=== PATIENT | male | born 1960 | race Caucasian/White ===

== ENCOUNTER 2016-11-22 16:03 | Emergency (ER) | payer OTHER ==
[~2016-11-22] VITALS: Ht 167.6 cm; Wt 77.1 kg
[~2016-11-22 16:03] MED LIST: ASPIRIN325 M2 PO; ATORVASTATIN CA40 M1 PO; JANUVIA25 M1 PO; LABETALOL HCL200 M1 PO; LISINOPRIL10 M1 PO; METFORMIN HCL500 M2 PO; NOVOLIN R100 UNIT/1 SC; SERTRALINE HCL25 MG PO
[2016-11-22 16:23] VITALS: BP 128/75
--- NOTE | 2016-11-22 17:20 | ED UPPER/LOWER EXTREMITY COMPL ---
History of Present Illness General Chief Complaint: Laceration Procedure Stated Complaint: LAC TO LEFT FOREARM Source: patient Exam Limitations: no limitations Vital Signs & Intake/Output Vital Signs & Intake/Output Vital Signs Date Time Temp Pulse Resp B/P B/P Pulse O2 O2 Flow FiO2 Mean Ox Delivery Rate 11/22 1710 97 Room Air 11/22 1623 97.1 58 16 128/75 97 Room Air ED Intake and Output 11/23 0000 11/22 1200 Intake Total Output Total Balance Patient 170 lb Weight Weight Estimated Measurement Method Allergies Coded Allergies: No Known Allergies (02/13/16) Triage Note: PT ARRIVES WITH LACERATION TO HIS LEFT FOREARM AFTER CUTTING HIS ARE WITH A PIECE OF WOOD. PT STATES HE FELL DOWN IN HIS DRIVEWAY AND THEN NOTICED HE HAD CUT HIS ARM. PT DENIES HITTTING HIS HEAD -LOC Triage Nurses Notes Reviewed? yes Onset: Just prior to arrival Duration: hour(s): (1) Timing: no prior history Severity: moderate Severity Numbers: 6 Pain/Injury Location: Left: Forearm. Method of Injury: fall, laceration HPI: Patient is a 56-year-old male with history of CVA presenting to the emergency department with chief complaint of laceration to left forearm. Patient reports that he was walking in his yard and tripped and fell and landed on a piece of wood. Denies numbness or tingling. Pain is currently moderate. Worse with palpation. Denies taking anything for symptoms prior to arrival. Patient takes daily aspirin. No other blood thinners. Unsure OF tetanus immunization. No head injury, no loss of consciousness. No dizziness chest pain or palpitations precipitating the fall. Patient reports that he tripped over something on the ground. (TRUE GARCIA) Reconcile Medications Aspirin (Aspirin*) 325 MG TABLET 1 TAB PO DAILY ANTIPLATELET Atorvastatin Calcium 40 MG TABLET 1 TAB PO 1700 STROKE Labetalol HCl 200 MG TABLET 1 TAB PO BID HTN Lisinopril 10 MG TABLET 1 TAB PO DAILY HTN Metformin HCl (Metformin HCl ER) 500 MG TAB.ER.24 1 TAB PO DAILY diabetes Sertraline HCl 25 MG TABLET 1 TAB PO DAILY DEPRESSION (RODRIGO AMAYA,MALA) Past History Travel History Traveled to [place] past 21 day No Medical History Any Pertinent Medical History? see below for history Neurological: CVA EENT: NONE Cardiovascular: hypertension (untreated) Respiratory: NONE Gastrointestinal: NONE Hepatic: NONE Renal: NONE Musculoskeletal: NONE Psychiatric: alcohol dependence Endocrine: NONE Blood Disorders: NONE Cancer(s): NONE APPLICATION PROCESSOR/Reproductive: NONE History of MRSA: No History of VRE: No History of CDIFF: No Surgical History Surgical History: RIGHT SHOULDER SURGERY Psychosocial History Who do you live with Son Services at Home None What is your primary language Icelandic Tobacco Use: Quit >30 days ago ETOH Use: denies use Illicit Drug Use: denies illicit drug use Family History Family History, If Any: MOTHER FH: congestive heart failure FATHER FHx: lung cancer Hx Contributory? No (TRUE GARCIA) Review of Systems Review of Systems Constitutional: Reports: no symptoms. Comments Review of systems: See HPI, All other systems negative. Constitutional, no chills fever or weight loss HEENT: No visual changes no sore throat no congestion Cardiovascular: No chest pain ,palpitation Skin, no jaundice Respiratory: No dyspnea cough sputum GI: No nausea no vomiting : No dysuria No hematuria Muscle skeletal: no back pain, no neck pain, Neurologic: No numbness no confusion NO BECK Psych: No stress anxiety or depression,. Heme/endocrine: No bruising no bleeding no polyuria or polydipsia Immunology: No splenectomy or history of AIDS (TRUE GARCIA) Physical Exam Physical Exam General Appearance: well developed/nourished, no apparent distress, alert, awake , comfortable Comments: Well-developed well-nourished no apparent distress. HEENT: Atraumatic, extraocular motion intact Neck: Normal inspection Back: Nontender Respiratory: No respiratory distress Extremities: No edema, full range of motion, full range of motion of the left forearm, left wrist and left hand without difficulty or pain. Radial pulses are 2+ bilaterally. Capillary refills intact in upper extremity bilaterally. Skin: Flap-like subcutaneous laceration, well approximating approximately 4-5 cm in length noted on the volar aspect of the left forearm. All foreign bodies appreciated after extensive irrigation. No surrounding erythema or edema. There is a superficial abrasion approximately 2-3 cm noted distally from this laceration. The laceration is in the mid aspect of the left forearm. Neuro: Alert and oriented x3, motor and sensory intact IN UPPER EXT BILATERALLY. Psych: Mood affect normal, normal memory normal judgment. (TRUE GARCIA) Progress Differential Diagnosis: LACERATION, ABRASION, CONTUSION, NEED FOR TETANUS PROPHYLAXIS Plan of Care: Current Medications Sig/Brad Start time Last Medication Dose Stop Time Status Admin Tetanus/Diphtheria 0.5 ML ONCE ONE 11/22 1729 UNVr Toxoids Adsorbed 11/22 1730 (Decavac) Comments: Declines pain medication on arrival. Patient given IM tetanus immunization. (TRUE GARCIA) Departure Departure Time of Disposition: 1720 Disposition: HOME OR SELF CARE Condition: Stable Clinical Impression Primary Impression: Laceration Referrals: RISSA AMAYA,KELVIN Arceo (PCP/Family) Additional Instructions: RETURN IN 7-10 DAYS FOR SUTURE REMOVAL. KEEP CLEAN AND DRY. TAKE MOTRIN OR TYLENOL OVER THE COUNTER DIRECTED. RETURN FOR INCREASED REDNESS, FEVERS OR CONCERNS Departure Forms: Customer Survey General Discharge Information (TRUE GARCIA) PA/FLIGHT ATTENDANT/INFLIGHT SUPERVISOR Co-Sign Statement Statement: ED Attending supervision documentation- [] I saw and evaluated the patient. I have also reviewed all the pertinent lab results and diagnostic results. I agree with the findings and the plan of care as documented in the PA's/FLIGHT ATTENDANT/INFLIGHT SUPERVISOR's documentation. [X] I have reviewed the ED Record and agree with the PA's/FLIGHT ATTENDANT/INFLIGHT SUPERVISOR's documentation. [] Additions or exceptions (if any) to the PAs/FLIGHT ATTENDANT/INFLIGHT SUPERVISOR's note and plan are summarized below: [] (RODRIGO AMAYA,MALA) Procedures Laceration/Wound Repair Laceration/Wound Repair: Wound Location: upper extremity Wound's Depth, Shape: flap, subcutaneous Wound Length (cm): 5 Wound Explored: clean, no foreign body removed, irrigated extensively Irrigated w/ Saline (ccs): 500 Betadine Prep? Yes Anesthesia: 1% lidocaine Volume Anesthetic (ccs): 6 Wound Debrided: minimal Wound Repaired With: sutures Suture Size/Type: 5:0, nylon Number of Sutures: 12 Layer Closure? No Date of Last Tetanus: 11/22/16 Tetanus Status: up to date Progress: Patient tolerated procedure well. Area was prepped with Betadine, anesthetized with 1% lidocaine. Sterile dressing placed with Betadine. (TRUE GARCIA)
== END 2016-11-22 17:59 ==
LOC: ERH 16:03
DX: S51.812A Laceration without foreign body of left forearm, initial encounter (principal); W18.09XA Striking against other object with subsequent fall, initial encounter; Y92.017 Garden or yard in single-family (private) house as the place of occurrence of the external cause; Y93.01 Activity, walking, marching and hiking
CPT/HCPCS: 90471; 90714

== ENCOUNTER 2017-11-04 20:52 | Inpatient (IN) | payer OTHER ==
[~2017-11-04] VITALS: Ht 170.2 cm; Wt 74.4 kg
--- NOTE | 2017-11-04 20:57 | ED AMS/SEIZURE/WEAK/DIZZY ---
History of Present Illness General Chief Complaint: Altered Mental Status Stated Complaint: BIBA AMS Source: patient, family, EMS Exam Limitations: no limitations Vital Signs & Intake/Output Vital Signs & Intake/Output Vital Signs Date Time Temp Pulse Resp B/P B/P Pulse O2 O2 Flow FiO2 Mean Ox Delivery Rate 11/04 2307 97 Room Air 11/04 2241 98.6 83 18 109/61 96 Room Air 11/04 2058 98.4 85 18 133/70 96 Room Air Allergies Coded Allergies: No Known Allergies (02/13/16) Reconcile Medications Aspirin (Aspirin*) 325 MG TABLET 1 TAB PO DAILY ANTIPLATELET Atorvastatin Calcium 40 MG TABLET 1 TAB PO 1700 STROKE Labetalol HCl 200 MG TABLET 1 TAB PO BID HTN Lisinopril 10 MG TABLET 1 TAB PO DAILY HTN Metformin HCl (Metformin HCl ER) 500 MG TAB.ER.24 1 TAB PO DAILY diabetes Sertraline HCl 25 MG TABLET 1 TAB PO DAILY DEPRESSION Triage Nurses Notes Reviewed? yes Onset: Gradual Duration: day(s): Timing: recent history Injury Environment: home Severity: moderate Modifying Factors: Improves With: rest. Associated Symptoms: weakness HPI: 57 yo gentleman h/o cva with residual right sided deficits, diabetes, presents with increased lethargy and confusion. Per son, "his sugar was in in the 200's yesterday... and then today he became more lethargic and confused... and then he took off his clothes and was wandering around the house..... His urine seemed to smell more and he was urinating more frequently." He also had chills, diaphoresis, and tactile temperatures. He is otherwise well. Past History Travel History Traveled to [place] past 21 day No Medical History Any Pertinent Medical History? 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 No Review of Systems Review of Systems Constitutional: Reports: no symptoms. EENTM: Reports: no symptoms. Respiratory: Reports: no symptoms. Cardiovascular: Reports: no symptoms. GI: Reports: no symptoms. Genitourinary: Reports: no symptoms. Musculoskeletal: Reports: no symptoms. Skin: Reports: no symptoms. Neurological/Psychological: Reports: no symptoms. Hematologic/Endocrine: Reports: no symptoms. Immunologic/Allergic: Reports: no symptoms. All Other Systems: Reviewed and Negative Physical Exam Physical Exam General Appearance: well developed/nourished, mild distress Head: atraumatic, normal appearance Eyes: Bilateral: normal appearance, PERRL, EOMI. Ears, Nose, Throat: normal pharynx, dry mucosa Neck: normal inspection, supple, full range of motion Respiratory: normal breath sounds, chest non-tender, no respiratory distress, quiet respiration, lungs clear Cardiovascular: regular rate/rhythm Gastrointestinal: normal bowel sounds, soft, non-tender, no organomegaly Back: normal inspection Extremities: normal range of motion Neurologic/Psych: awake, alert, axo x2... right hand 4/5 strength, right leg 4+/ 5 strength. light touch intact. Skin: intact, normal color, cool extremities Core Measures ACS in differential dx? No CVA/TIA Diagnosis No Sepsis Present: No Sepsis Focused Exam Completed? No Progress Differential Diagnosis: dehydration, uti, electrolyte abnormality vs other. Plan of Care: Orders Procedure Date/time Status Heart Healthy Diet 11/05 B Active Saline Lock 11/05 2323 Active Misc Message 11/05 2323 Active ED Holding Orders 11/05 2323 Active Admit to inpatient 11/05 2323 Active Vital Signs 11/05 2323 Active Code Status 11/05 2323 Active URINE DRUG SCREEN FOR ER ONLY 11/05 2247 Active Add-on Test (ER Only) 11/04 2128 Active ETHANOL 11/05 2123 Complete CULTURE,URINE 11/04 2056 Active URINALYSIS 11/04 2056 Complete TROPONIN LEVEL 11/04 2056 Complete LIPASE 11/04 2056 Complete HEPATIC FUNCTION PANEL 11/04 2056 Complete CBC WITHOUT DIFFERENTIAL 11/04 2056 Complete BASIC METABOLIC PANEL 11/04 2056 Complete AMYLASE 11/04 2056 Complete EKG 11/04 2056 Active Patient Data 11/04 1644 Active Current Medications Sig/Brad Start time Last Medication Dose Stop Time Status Admin Sodium Chloride 1,000 ML BOLUS ONE 11/04 2299 AC 11/04 (Normal Saline 0.9%) 11/04 2358 2308 Laboratory Tests 11/04/172239: Methadone Screen Pending, Barbiturate Screen Pending, Ur Phencyclidine Scrn Pending, Amphetamines Screen Pending, U Benzodiazepines Scrn Pending, Urine Cocaine Screen Pending, Urine Cannabis Screen Pending, Urinalysis LIGHT H, Urine Color YEL, Urine Clarity TURBD H, Urine pH 6.0, Ur Specific [place] >= 1.030, Urine Protein 100 H, Urine Ketones NEG, Urine Nitrite NEG, Urine Bilirubin NEG, Urine Urobilinogen 1.0, Ur Leukocyte Esterase LARGE H, Ur Microscopic SEDIMENT EXAMINED, Urine RBC 5-10 H, Urine WBC PACKD H, Ur Epithelial Cells FEW, Urine Bacteria PACKD H, Urine Mucus FEW, Urine Hemoglobin LARGE H, Urine Glucose 100 H 11/04/172128: Serum Alcohol Cancelled 11/04/172123: Anion Gap 16, Estimated GFR 48 L, BUN/Creatinine Ratio 16.0, Glucose 196 H, Calcium 9.0, Total Bilirubin 1.0, Direct Bilirubin 0.1, AST 78 H, ALT 77 H, Alkaline Phosphatase 70, Troponin I < 0.01, Total Protein 6.7, Albumin 4.0, Amylase 38, Lipase 40, CBC w Diff NO MAN DIFF REQ, RBC 3.72 L, MCV 90.2, MCH 30.1, MCHC 33.3, RDW 13.4, MPV 7.6, Gran % 86.3 H, Lymphocytes % 7.3 L, Monocytes % 6.1, Eosinophils % 0, Basophils % 0.3, Absolute Granulocytes 8.7 H, Absolute Lymphocytes 0.7 L, Absolute Monocytes 0.6, Absolute Eosinophils 0, Absolute Basophils 0, Serum Alcohol < 10.0 Microbiology 11/05 2239 URINE ROUT: Urine Culture - RECD Diagnostic Imaging: Viewed by Me: Radiology Read, CT Scan. Discussed w/RAD: Radiology Read, CT Scan. Radiology Impression: PATIENT: AMRIK RAMON PRESENT AGE: 57 PATIENT ACCOUNT NO: [id number] : 60 LOCATION: [facility] [place] ORDERING PHYSICIAN: Raul King MD SERVICE DATE: 11/04/17 EXAM TYPE: CAT - CT HEAD WO IV CONTRAST EXAMINATION: CT HEAD WITHOUT CONTRAST CLINICAL INFORMATION: 57-year-old man with confusion. COMPARISON: 02/19/[address] TECHNIQUE: Contiguous axial imaging was performed from the skull base to vertex without intravenous administration of contrast. 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 Smaller areas of chronic lacunar infarction are seen in the basal ganglia and thalami. No intracranial mass, hemorrhage, midline shift, or extra- axial collection is appreciated. The paranasal sinuses are well aerated. There is patchy opacification of a few right mastoid tip cells. IMPRESSION: No acute intracranial pathology. DICTATED BY: Kina Chow MD DATE/TIME DICTATED:11/04/172150 BOOKMAKER'S CLERK:CARLOS DATE/TIME TRANSCRIBED:11/04/172150 CONFIDENTIAL, DO NOT COPY WITHOUT APPROPRIATE AUTHORIZATION. <Electronically signed in Other Vendor System> SIGNED BY: Kina Chow MD 11/04/172155 CXR Impression: PATIENT: AMRIK RAMON PRESENT AGE: 57 PATIENT ACCOUNT NO: [id number] : 60 LOCATION: [facility] [place] ORDERING PHYSICIAN: Raul King MD SERVICE DATE: 11/04/17 EXAM TYPE: RAD - XRY-PORTABLE CHEST XRAY EXAMINATION: XR PORTABLE CHEST CLINICAL INFORMATION: Fever and chills. COMPARISON: Chest radiograph 02/13/2016. TECHNIQUE: Portable frontal view of the chest was obtained. FINDINGS: The lungs are clear without consolidation, edema, or effusion. There is no pneumothorax. The cardiomediastinal silhouette appears normal. A loop recorder is noted. The osseous structures are intact. IMPRESSION: No active disease in the chest. DICTATED BY: Dariusz Milligan MD DATE/TIME DICTATED:11/04/172157 BOOKMAKER'S CLERK:CARLSO DATE/TIME TRANSCRIBED:11/04/172157 CONFIDENTIAL, DO NOT COPY WITHOUT APPROPRIATE AUTHORIZATION. <Electronically signed in Other Vendor System> SIGNED BY: Dariusz Milligan MD 11/04/17 4173 Initial ED EKG: normal axis, normal intervals, normal p-waves, normal QRS complex, normal sinus rhythm Departure Departure Disposition: STILL A PATIENT Condition: Stable Clinical Impression Primary Impression: UTI (urinary tract infection) Secondary Impressions: Acute kidney injury, Dehydration, Mental status change Referrals: Patient Has No Primary Care Dr Departure Forms: Customer Survey General Discharge Information Admission Note [facility] Documentation of Exam: Documentation of any treatments & extenuating circumstances including Concerns Regarding Discharge (functional status, medication knowledge or non-compliance, living conditions, etc.) that warrant an admission rather than observation: Pt with h/o cva, diabetes, residual right sided deficits, with lethargy, mental status change, exam notable for mild confusion and dry mucosa. labs reveal uti and elevated creatinine... pt merits iv abx, iv fluids, pt consult.... pt is high risk for significant morbidity given his underlying conditions
[2017-11-04 21:36] LABS: ABSOLUTE BASOPHIL COUNT 0 /CUMM (0.0-0.2); ABSOLUTE EOSINOPHIL COUNT 0 /CUMM (0.0-0.7); ABSOLUTE GRANULOCYTE CT 8.7 /CUMM (1.4-6.5); ABSOLUTE LYMPH COUNT 0.7 /CUMM (1.2-3.4); ABSOLUTE MONOCYTE COUNT 0.6 /CUMM (0.10-0.60); BASOPHIL % 0.3 % (0.0-2.0); EOSINOPHIL % 0 % (0-5); GRANULOCYTE % 86.3 % (42.2-75.2); HEMATOCRIT 33.6 % (42-52); MEAN CORPUSCULAR HGB 30.1 PG (27.0-31.0); MEAN CORPUSCULAR HGB CONC 33.3 G/DL (33.0-37.0); MEAN CORPUSCULAR VOLUME 90.2 FL (80.0-94.0); MEAN PLATELET VOLUME 7.6 FL (7.4-10.4); PLATELET COUNT 209 /CUMM (130-400); RBC DISTRIBUTION WIDTH 13.4 % (11.5-14.5); RED BLOOD CELL CT 3.72 /CUMM (4.70-6.10); WHITE BLOOD CELL COUNT 10.1 /CUMM (4.8-10.8)
--- NOTE | 2017-11-04 21:56 | CT SCAN REPORT ---
EXAMINATION: CT HEAD WITHOUT CONTRAST CLINICAL INFORMATION: 57-year-old man with confusion. COMPARISON: 02/19/[address] TECHNIQUE: Contiguous axial imaging was performed from the skull base to vertex without intravenous administration of contrast. 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 Smaller areas of chronic lacunar infarction are seen in the basal ganglia and thalami. No intracranial mass, hemorrhage, midline shift, or extra-axial collection is appreciated. The paranasal sinuses are well aerated. There is patchy opacification of a few right mastoid tip cells. IMPRESSION: No acute intracranial pathology.
--- NOTE | 2017-11-04 22:04 | RADIOLOGY REPORT ---
EXAMINATION: XR PORTABLE CHEST CLINICAL INFORMATION: Fever and chills. COMPARISON: Chest radiograph 02/13/2016. TECHNIQUE: Portable frontal view of the chest was obtained. FINDINGS: The lungs are clear without consolidation, edema, or effusion. There is no pneumothorax. The cardiomediastinal silhouette appears normal. A loop recorder is noted. The osseous structures are intact. IMPRESSION: No active disease in the chest.
--- NOTE | 2017-11-04 23:25 | History & Physical ---
Juan Vazquez MD,[facility] 11/04/17 6255: General Information and HPI MD Statement: I have seen and personally examined TRISTENCARLOS Alessandro SR and documented this H&P. The patient is a 57 year old M who presented with a patient stated chief complaint of [AMS]. Source of Information: patient, family, old records History of Present Illness: Patient is 57 Y M with PMH of CVA with right sided deficit (nonhemorrhagic left hemispheric stroke, 2 years ago no TPA, on Asptin and statin), DM (on insulin and metformin), HTN, history of alcohol dependence was BIBA to the ED with altered mental status. Patient was not fully oriented at the time of interview, he noted he had no complaint,and we called his son to complete the history. According to his son patient was more confused for the last 2 days, hew as not walking as he could, he had worsening of motor skills (such as washing), and also toldto his son he could urinate. He was also urinating more frequently on Sunday and Sunday which his son was radiating to high blood sugars. He also had some chills but temperature was not measured. He was also complaining of some mild abdominal pain. In his baseline he was not fully orieted at times, had slurred speech and trouble finding words, however this was deteriorated in the last few days. This morning his son found patient on the floor in bathroom, called EMS and he was transfered to ED. Son didn't know if he hit his head. Patient did not report nausea or vomiting, no chest pain, no shortness of breathing. Patient ambulates without nutrition assistant in baseline but reported frequent falls recently, eats regular food, but is not independent in ADL S. He doesn't drink, used to smoke but stopped 2 years ago. He lives with son. Patient was last admitted to 2 y ago for stroke, was never hospitalized after that and follows neurologist at [facility] (Son did not know the name). 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 child Services at Home: None Primary Language: Georgian Functional Ability ADLs Independent: dressing, eating, toileting, bathing. Ambulation: independent IADLs Independent: shopping, housework, finances, food prep, telephone, transportation , medication admin. Review of Systems Review of Systems Constitutional: Reports: see HPI. Exam & Diagnostic Data Last 24 Hrs of Vital Signs/I&O Vital Signs Date Time Temp Pulse Resp B/P B/P Pulse O2 O2 Flow FiO2 Mean Ox Delivery Rate 11/05 0123 99.9 85 20 134/70 11/05 0118 96 Room Air 11/05 0011 101.3 74 18 134/66 97 Room Air 11/04 2307 97 Room Air 11/04 2242 98.6 83 18 109/61 96 Room Air 11/04 2059 98.4 85 18 133/70 96 Room Air Intake & Output 11/05 0800 11/05 0000 11/04 1600 Intake Total Output Total 50 Balance -50 Output, Urine 50 Patient 164 lb 185 lb Weight Weight Bed scale Reported by Patient Measurement Method Physical Exam General Appearance Alert, Cooperative, No Acute Distress, Partial orineted X1, Shivering of cold at the time of examinatino Skin Temp/Moisture Exam: Warm/Dry HEENT Atraumatic, EOMI, Mocus mem dry Cardiovascular Normal S1, Normal S2 Lungs Clear to Auscultation, Normal Air Movement Abdomen Soft, No Tenderness, Mild left flank tenderness Neurological Slurred speech,cranial normal R UE 4/5 L UE normal Bilateral LE 5/5 Extremities No Edema Last 24 Hrs of Labs/Shawn: Laboratory Tests 11/04/17 2240: Urine Opiates Screen < 100, Methadone Screen < 40, Barbiturate Screen < 60, Ur Phencyclidine Scrn < 6.00, Amphetamines Screen 193, U Benzodiazepines Scrn 109, Urine Cocaine Screen < 50, Urine Cannabis Screen < 5.00, Urinalysis LIGHT H, Urine Color YEL, Urine Clarity TURBD H, Urine pH 6.0, Ur Specific [place] >= 1.030, Urine Protein 100 H, Urine Ketones NEG, Urine Nitrite NEG, Urine Bilirubin NEG, Urine Urobilinogen 1.0, Ur Leukocyte Esterase LARGE H, Ur Microscopic SEDIMENT EXAMINED, Urine RBC 5-10 H, Urine WBC PACKD H, Ur Epithelial Cells FEW, Urine Bacteria PACKD H, Urine Mucus FEW, Urine Hemoglobin LARGE H, Urine Glucose 100 H 11/04/172128: Serum Alcohol Cancelled 11/04/172123: Anion Gap 16, Estimated GFR 48 L, BUN/Creatinine Ratio 16.0, Glucose 196 H, Calcium 9.0, Total Bilirubin 1.0, Direct Bilirubin 0.1, AST 78 H, ALT 77 H, Alkaline Phosphatase 70, Creatine Kinase Pending, Troponin I < 0.01, Total Protein 6.7, Albumin 4.0, Amylase 38, Lipase 40, CBC w Diff NO MAN DIFF REQ, RBC 3.72 L, MCV 90.2, MCH 30.1, MCHC 33.3, RDW 13.4, MPV 7.6, Gran % 86.3 H, Lymphocytes % 7.3 L, Monocytes % 6.1, Eosinophils % 0, Basophils % 0.3, Absolute Granulocytes 8.7 H, Absolute Lymphocytes 0.7 L, Absolute Monocytes 0.6, Absolute Eosinophils 0, Absolute Basophils 0, Serum Alcohol < 10.0 Microbiology 11/05 106 BLOOD: Blood Culture - ORD 11/05 106 BLOOD: Blood Culture - ORD 11/05 2239 URINE ROUT: Urine Culture - RECD Assessment/Plan Assessment: Patient is 57 Y M presented with AMS trouble urinating Chills and feeling warm PMH: CVA with right sided deficit (nonhemorrhagic left hemispheric stroke, 2 years ago no TPA, on Asptin and statin), DM (on insulin and metformin), HTN, history of alcohol dependence VS, Ph Ex at admission: Insignificant, blood pressure stable, no fever Labs at admission: WBC 10.1, Hgb 11.2, BEP, BUN 24, creatinine 1.5, AST 78, ALT 77 US active, LE large, hemoglobin large Imagings at admission: Chest x-ray No active disease in the chest. Head CT: No acute intracranial pathology. Patient was admitted to floor for management of following conditions: AMS, most likely delirium secondary to UTI UTI NAVDEEP Transaminitis Chronic medical conditions: Stroke, DM - admit patient to GM floor - Vital signs, Continue gentle hydration - Follow cutlures: blood and urin - Ceftriaxone for UTI, due to AMS - Accuchecks, sliding scale, Levemir - Continue home medication - Check CK, cosnider LDH and haptoglubin - follow LFT in am - PT evaluation Diabetic diet FC DVT ppx: ALPS, heparin As Ranked By This Provider Problem List: 1. Mental status change 2. Acute kidney injury 3. Dehydration 4. UTI (urinary tract infection) Core Measures/Misc (03/11) Acute Coronary Syndrome ACS Diagnosis: No Congestive Heart Failure Congestive Heart Failure Diagnosis No Cerebrovascular Accident CVA/TIA Diagnosis: No VTE (View Protocol) VTE Risk Factors Age>40 No Mechanical VTE Prophylaxis d/t N/A MechProphylax Ordered No VTE Pharm Prophylaxis d/t NA PharmProphylax ordered Sepsis (View protocol) Sepsis Present: No Antony AMAYA,[facility] 11/05/17 0108: General Information and HPI Allergies/Medications Home Med list Atorvastatin Calcium 40 MG TABLET 1 TAB PO 1700 STROKE Clopidogrel Bisulfate (Plavix) 75 MG TABLET 1 TAB PO DAILY TIA (Reported) Insulin Glargine,Hum.rec.anlog (Lantus Solostar) 100 UNIT/ML (3 ML) INSULN.PEN 15 UNIT SC QPM DM (Reported) Labetalol HCl 200 MG TABLET 1 TAB PO BID HTN Metformin HCl (Metformin HCl ER) 500 MG TAB.ER.24 1,000 TAB PO BID DM Sertraline HCl 25 MG TABLET 75 TAB PO DAILY DEPRESSION Resident Review Statement Resident Statement: examined this patient, discussed with recording studio internship, agreed with recording studio internship, discussed with family, discussed with nursing Other Findings: Mr. Evans is 57-year-old male with past medical history significant for diabetes mellitus, hyperlipidemia, hypertension, 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 Patient is alert and oriented to person and place "hospital", could not give clear history of the events today however he denied any abdominal pain, nausea, vomiting, urinary symptoms, diarrhea or constipation, chest pain, shortness of breath. Patient reported increase frequency of falls. He lives with his son Mr. Carlos Myles. History was obtained from the son who reported increase confusion, urinary frequency and chills since Sunday. High blood sugars on Sunday and Sunday with increased urinary frequency. Today patient fell in the bathroom, not known if he hit his head and son called the ambulance. Per ED note patient was found wandering naked in the house and confused. On admission patient was found to have temperature of 98.4, second reading 101 Pulse 85, blood pressure 133/70, respiratory rate 18 saturating 96% room air Exam patient is alert, oriented to person and place "hospital", not in acute distress. Mucous membrane dry S1, S2 and no murmurS, no carotid bruit Chest bilateral equal air entry Abdomen left flank mild tenderness, abdomen soft, nontender, bowel sounds positive Neuro exam cranial nerves are grossly normal, sensation intact, motor right upper extremity 4-, lower extremity bilateral 5/5 Labs pertinent to white blood cell 10.1, H&H 11.2/33.6, platelet 209, sodium 137 , potassium 4.6, BUN/creatinine 24/1.5 (baseline 0.8), glucose 196, he is T/ALT 78/77, UA positive leukocyte esterase, packed white blood cell, hemoglobin CT head negative for acute changes Chest x-ray no active disease in the chest Problem list #UTI #Confusion #Acute kidney injury #Mild transaminitis #History of CVA with mild right neurological deficit Plan Admit to general medical floor Vitals every shift Blood culture and urine culture Acetaminophen for fever Repeat CBCs, BMP, liver function test in a.m. Ceftriaxone IV daily Normal saline running at 100 cc/h 2 bags Avoid narcotics or any medication might worse the mental status aCCU Check, NovoLog sliding scale Levemir 7 units twice daily Continue Plavix, labetalol, sertraline. Hold off statin for mild transaminitis If patient continues to have fever, leukocytosis consider imaging in a.m. If patient continues to have transaminitis consider hepatitis panel and ultrasound abdomen Patient passed bedside swallow evaluation PT evaluation and treat in a.m. Diet diabetic diet DVT prophylaxis heparin subcutaneous Code full (patient is not fully oriented and CODE STATUS was discussed with the son who reported full CODE STATUS) Jayden AMAYA, [facility] 11/05/17 0242: Attending MD Review Statement Attending Statement Attending MD Statement: examined this patient, discuss w/resident/PA/DIRT SUPERVISOR, agreed w/resident/PA/DIRT SUPERVISOR, reviewed images, amended to note Attending Assessment/Plan: 57 yo M with h/o left hemispheric stroke with residual right sided weakness and word finding difficulty, HTN, T2DM on insulin, is brought in for evaluation of increasing confusion, weakness and lethargy. Patient denied any symptoms, he is alert only to person and knows he is in the hospital but does not know the name of the hospital. Patient states he has been having frequent falls. As per son, for past 2 days patient has been more confused, has had urinary frequency, chills and high blood sugars (>200's). Today patient had an unwitnessed fall in the bathroom. Vitals: afebrile, HR 80's, BP 109/61, sats 96% RA. Exam: awake, alert but oriented x1, dry mucosa, right sided deficit, some word finding difficulty and left CVA tenderness. Labs: WBC 10.1, H/H 11.2/33.6, BUN 24, creat 1.5 (baseline 0.7-0.8), glucose 196 , lactic acid 2.2, AST 78, ALT 77, trop negative. Alcohol <10. UA turbid, proteinuria, large LE, WBC packed, Bacteria packed, RBC 5-10, large hemoglobin. Urine tox screen negative. CXR: no acute disease. 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 EKG: sinus rhythm, no acute changes Echo (2016): EF > 65%, LVH. Assessment and plan: 1. Confusion, acute delirium, unwitnessed fall 2. Acute cystitis, pyelonephritis 3. Acute kidney injury likely pre-renal/ volume depletion 4. Transaminitis 5. Type 2 diabetes with hyperglycemia 6. History of CVA and hypertension - Admit to General medicine - Panculture - IV Ceftriaxone - IV fluid hydration - Check lactic acid - Trend renal functions - Check CK levels and urine lytes - If renal functions do not improve, check renal ultrasound - Trend LFTs after IV hydration, hold statin for now - Diabetes management with novolog SS, lantus, check HbA1c and hold metformin - PT eval DVT ppx Hep SC. Full code.
--- NOTE | 2017-11-04 23:46 | Admission Certification ---
Admission Certification Certification Statement - As attending physician, I certify that at the time of - admission, based on clinical presentation, severity of - symptoms, need for further diagnostic testing and - therapeutic interventions, and risk of adverse outcomes - without in-hospital treatment, in my clinical assessment, - this patient requires an acute hospital stay for a minimum - of two nights or longer. I have also considered psychsocial - factors such as support system, advanced age, financial - issues, cognitive issues, and failed out-patient treatments, - past re-admission history, safety of patient, and lack of - compliance as applicable. Specific rationale supporting this admission is: Altered mental status, UTI/ pyelonephritis and acute kidney injury.
[2017-11-05] MEDS ORDERED: PLAVIX75 M1 PO (01:00)
[2017-11-05] MEDS ORDERED: LANTUS SOL100 UNIT/1 SC (01:01)
[2017-11-05] MEDS ORDERED: SERTRALINE HCL25 MG PO (01:02)
[2017-11-05] MEDS ORDERED: METFORMIN HCL500 M2 PO (01:02)
[2017-11-05 01:23] VITALS: BP 134/70
[2017-11-05 05:58] VITALS: BP 122/62
--- NOTE | 2017-11-05 07:07 | PN- Housestaff ---
Subjective Follow-up For: Acute delirium due to UTI Urine culture is positive for gram -ve rods NAVDEEP Transaminitis Subjective: No over night events. Remained afibrile. Seen and examined this morning. Denied chest pain, shortness of breath, nausea, vomiting, palpitation, abdominal pain and dysuria. Patient reported having urinary incontinence. Patient seemed to be confused. He has difficulty in finding words sometimes. Maybe that's his baseline. Review of Systems Constitutional: Denies: chills, fever. EENTM: Reports: no symptoms. Cardiovascular: Denies: chest pain, orthopena, palpitations. Respiratory: Denies: cough, short of breath, sputum production. Gastrointestinal: Denies: abdominal pain, diarrhea, nausea, vomiting. Genitourinary: Reports: see HPI. Neurological/Psychological: Reports: no symptoms. Objective Last 24 Hrs of Vital Signs/I&O Vital Signs Date Time Temp Pulse Resp B/P B/P Pulse O2 O2 Flow FiO2 Mean Ox Delivery Rate 11/05 1604 Room Air 11/05 1502 Room Air 11/05 1416 99.2 71 20 104/60 95 Room Air 11/05 0854 75 122/62 11/05 0558 99.6 75 20 122/62 95 11/05 0220 99.9 11/05 0138 96 Room Air 11/05 0123 99.9 85 20 134/70 11/05 0118 96 Room Air 11/05 0011 101.3 74 18 134/66 97 Room Air 11/04 2307 97 Room Air 11/04 2242 98.6 83 18 109/61 96 Room Air 11/04 2059 98.4 85 18 133/70 96 Room Air Intake & Output 11/05 1600 11/05 0800 11/05 0000 Intake Total 800 650 Output Total 400 400 Balance 400 250 Intake, IV 650 Intake, Oral 800 Output, Urine 400 400 Patient 164 lb 185 lb Weight Weight Bed scale Reported by Patient Measurement Method Physical Exam General Appearance: Alert, Oriented X3, Cooperative Skin: No Rashes Skin Temp/Moisture Exam: Warm/Dry Sepsis Skin Exam (color): Normal for Ethnicity HEENT: Atraumatic, PERRLA, EOMI Neck: Supple Cardiovascular: Normal S1, Normal S2 Lungs: Clear to Auscultation Abdomen: Soft, No Tenderness Neurological: Normal Speech, Strength at 5/5 X4 Ext, Normal Tone Extremities: No Edema Assessment/Plan Assessment: 57 YO M with PMH significant for diabetes mellitus, hyperlipidemia, hypertension , 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 We are following the patient with following problems. Acute delirium due to UTI: -Patient's urine culture is growing gram-negative enrrique and we will follow final urine cultures and sensitivities. -Continue ceftriaxone -Patient was encouraged to drink more oral fluids. Unwitnessed fall: -Probably due to generalized weakness, probably mechanical fall -Patient denied any nausea vomiting or lightheadedness before the fall. -Fall precaution -PT/OT evaluation Acute kidney injury: -Patient has acute kidney injury probably due to dehydration. -Patient was given gentle IV hydration initially. Later on he was encouraged to drink orally as his eating and drinking without any complaint. His IV fluids were discontinued this morning. -We will follow his creatinine level -Avoid nephrotoxic medications -Follow-up input and output Transaminitis: -We will trend his LFTs -We will hold statins History of hypertension: -Continue labetalol History of CVA: -Continue Plavix History of diabetes: -Accu-Cheks -Continue insulin NovoLog according to sliding scale -His fasting blood sugar level was 141 this morning DVT prophylaxis: Mechanical and subcutaneous Lovenox CODE STATUS: Full code Problem List: 1. Acute kidney injury 2. Mental status change 3. UTI (urinary tract infection) Pain Ratin Pain Location: none Pain Goal: Remain pain free Pain Plan: pain pathway Tomorrow's Labs & Rationales: bep
[2017-11-05 08:39] LABS: ABSOLUTE BASOPHIL COUNT 0 /CUMM (0.0-0.2); ABSOLUTE EOSINOPHIL COUNT 0 /CUMM (0.0-0.7); ABSOLUTE GRANULOCYTE CT 7.3 /CUMM (1.4-6.5); ABSOLUTE MONOCYTE COUNT 0.5 /CUMM (0.10-0.60); BASOPHIL % 0.4 % (0.0-2.0); EOSINOPHIL % 0 % (0-5); GRANULOCYTE % 82.6 % (42.2-75.2); MEAN CORPUSCULAR HGB 30.5 PG (27.0-31.0); MEAN CORPUSCULAR VOLUME 89.8 FL (80.0-94.0); MEAN PLATELET VOLUME 8.3 FL (7.4-10.4); PLATELET COUNT 183 /CUMM (130-400); RBC DISTRIBUTION WIDTH 13.6 % (11.5-14.5); RED BLOOD CELL CT 3.34 /CUMM (4.70-6.10); WHITE BLOOD CELL COUNT 8.8 /CUMM (4.8-10.8)
--- NOTE | 2017-11-05 13:25 | PN- Att Addend ---
Attending Addendum Attending Brief Note Patient seen and examined. Plan of care discussed with the medical team and the patient. Available lab work and radiology test reports were reviewed. Patient sitting in chair. His by mouth intake has improved. Patient appears confused and disoriented. Exam: General: Patient awake but confused and disoriented without any distress CVS: S1 plus S2 without any murmur or gallops Chest: Few scattered crepitation without any wheeze. There is no respiratory distress. 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: Awake confused and disoriented with persistent right-sided a proximity weakness and follows commands appropriately Extremities: No edema; no clubbing or cyanosis noted Assessment * Pyelonephritis/UTI due to gram-negative enrrique identification pending * History of hemorrhagic CVA with residual right-sided weakness * Confusion delirium likely due to UTI * Unwitnessed fall * Acute kidney injury * Type 2 diabetes * Hist of hypertension Plan * Await identification of gram-negative rods a urine culture; will adjust antibiotic accordingly * Continue ceftriaxone for now * No need to check CBC * Check creatinine tomorrow * Continue current dose of Levemir * Discontinue IV fluids and by mouth if po intake is adequate Current Medications Sig/Brad Start time Last Medication Dose Route Stop Time Status Admin Acetaminophen 500 MG Q6P PRN 11/05 0130 AC 11/05 PO 0220 Ceftriaxone Sodium 1,000 MG 2330 11/05 2330 AC IV Ceftriaxone Sodium 1,000 MG DAILY 11/05 0900 DC IV Ceftriaxone Sodium 1,000 MG ONCE ONE 11/04 2315 DC 11/04 IV 11/04 2316 2323 Clopidogrel Bisulfate 75 MG DAILY 11/05 0900 AC 11/05 PO 0854 Heparin Sodium 5,000 UNIT Q8 11/05 0600 AC 11/05 (Porcine) SC 0520 Insulin Aspart 0 TIDAC 11/05 0800 AC 11/05 SC 1242 Insulin Detemir 7 UNITS BID 11/05 0900 AC 11/05 SC 0857 Labetalol HCl 200 MG BID 11/05 0900 AC 11/05 PO 0854 Sertraline HCl 75 MG DAILY 11/05 0900 AC 11/05 PO 0854 Sodium Chloride 1,000 ML .Q10H 11/05 0045 DC 11/05 IV 11/05 2044 0143 Sodium Chloride 1,000 ML BOLUS ONE 11/04 2300 DC 11/04 IV 11/04 3089 2308 Laboratory Tests 11/05/17 0715: Anion Gap 15, Estimated GFR 52 L, BUN/Creatinine Ratio 19.3, Lactic Acid 1.8, Total Bilirubin 0.7, Direct Bilirubin 0.2, AST 63 H, ALT 78 H, Alkaline Phosphatase 67, Total Protein 6.3, Albumin 3.7, CBC w Diff NO MAN DIFF REQ, RBC 3.34 L, MCV 89.8, MCH 30.5, MCHC 34.0, RDW 13.6, MPV 8.3, Gran % 82.6 H, Lymphocytes % 11.3 L, Monocytes % 5.7, Eosinophils % 0, Basophils % 0.4, Absolute Granulocytes 7.3 H, Absolute Lymphocytes 1.0 L, Absolute Monocytes 0.5, Absolute Eosinophils 0, Absolute Basophils 0 11/05/17 0255: Lactic Acid 2.4 H 11/04/172239: Urinalysis LIGHT H, Urine Color YEL, Urine Clarity TURBD H, Urine pH 6.0, Ur Specific [place] >= 1.030, Urine Protein 100 H, Urine Ketones NEG, Urine Nitrite NEG, Urine Bilirubin NEG, Urine Urobilinogen 1.0, Ur Leukocyte Esterase LARGE H, Ur Microscopic SEDIMENT EXAMINED, Urine RBC 5-10 H, Urine WBC PACKD H, Ur Epithelial Cells FEW, Urine Bacteria PACKD H, Urine Mucus FEW, Urine Hemoglobin LARGE H, Urine Glucose 100 H 11/04/172239: Urine Opiates Screen < 100, Methadone Screen < 40, Barbiturate Screen < 60, Ur Phencyclidine Scrn < 6.00, Amphetamines Screen 193, U Benzodiazepines Scrn 109, Urine Cocaine Screen < 50, Urine Cannabis Screen < 5.00, Ur Random Creatinine 160.5, Ur Random Sodium 38, Ur Random Potassium 35.2, Fraction Sodium Excret 0.3 11/04/172128: Serum Alcohol Cancelled 11/04/172123: Anion Gap 16, Estimated GFR 48 L, BUN/Creatinine Ratio 16.0, Glucose 196 H, Hemoglobin A1c 5.4, Lactic Acid 2.2 H, Calcium 9.0, Total Bilirubin 1.0, Direct Bilirubin 0.1, AST 78 H, ALT 77 H, Alkaline Phosphatase 70, Creatine Kinase 186 H, Troponin I < 0.01, Total Protein 6.7, Albumin 4.0, Amylase 38, Lipase 40 , CBC w Diff NO MAN DIFF REQ, RBC 3.72 L, MCV 90.2, MCH 30.1, MCHC 33.3, RDW 13.4, MPV 7.6, Gran % 86.3 H, Lymphocytes % 7.3 L, Monocytes % 6.1, Eosinophils % 0, Basophils % 0.3, Absolute Granulocytes 8.7 H, Absolute Lymphocytes 0.7 L, Absolute Monocytes 0.6, Absolute Eosinophils 0, Absolute Basophils 0, Serum Alcohol < 10.0 Microbiology 11/05 826 BLOOD: Blood Culture - RECD 11/05 714 BLOOD: Blood Culture - RECD 11/05 2239 URINE ROUT: Urine Culture - RES GRAM NEGATIVE RODS Vital Signs Date Time Temp Pulse Resp B/P B/P Pulse O2 O2 Flow FiO2 Mean Ox Delivery Rate 11/05 0854 75 122/62 11/05 0558 99.6 75 20 122/62 95 11/05 0220 99.9 11/05 0138 96 Room Air 11/05 0123 99.9 85 20 134/70 11/05 0118 96 Room Air 11/05 0011 101.3 74 18 134/66 97 Room Air 11/04 2307 97 Room Air 11/04 2242 98.6 83 18 109/61 96 Room Air 11/04 2059 98.4 85 18 133/70 96 Room Air Intake & Output 11/05 1600 11/05 0800 11/05 0000 Intake Total 650 Output Total 400 Balance 250 Intake, IV 650 Output, Urine 400 Patient 164 lb 185 lb Weight Weight Bed scale Reported by Patient Measurement Method
[2017-11-05 14:16] VITALS: BP 104/60
[2017-11-05 22:07] VITALS: BP 126/66
[2017-11-06 06:24] VITALS: BP 120/60
--- NOTE | 2017-11-06 07:10 | PN- Housestaff ---
Subjective Follow-up For: Acute delirium due to UTI Urine culture is positive for gram -ve rods NAVDEEP Transaminitis Subjective: Patient had fever last night. Seen and examined this morning. Patient denied any chest pain, palpitation, chills, cough, sputum, abdominal pain, burning while urination and lightheadedness. Patient has difficulty in finding words and he is oriented to place and person but not with time. Patient walked around yesterday with assistance. We will encourage him to walk around today again and sit sometimes outside. Review of Systems Constitutional: Denies: chills, fever. EENTM: Reports: no symptoms. Cardiovascular: Denies: chest pain, palpitations. Respiratory: Denies: cough, short of breath, sputum production. Gastrointestinal: Denies: abdominal pain, constipation, diarrhea, nausea, vomiting. Genitourinary: Reports: no symptoms. Neurological/Psychological: Reports: no symptoms. Objective Last 24 Hrs of Vital Signs/I&O Vital Signs Date Time Temp Pulse Resp B/P B/P Pulse O2 O2 Flow FiO2 Mean Ox Delivery Rate 11/06 0624 99.0 70 20 120/60 95 Room Air 11/06 0000 99.5 11/05 2207 100.8 74 20 126/66 93 Room Air 11/05 2153 100.8 11/05 2151 74 126/66 11/05 1604 Room Air 11/05 1502 Room Air 11/05 1416 99.2 71 20 104/60 95 Room Air 11/05 0854 75 122/62 Intake & Output 11/06 1600 11/06 0800 11/06 0000 Intake Total 240 1090 Output Total 1125 1025 Balance -885 65 Intake, IV 0 10 Intake, Oral 240 1080 Number 0 Bowel Movements Output, Urine 1125 1025 Physical Exam General Appearance: Alert, Cooperative Skin Temp/Moisture Exam: Warm/Dry Sepsis Skin Exam (color): Normal for Ethnicity HEENT: Atraumatic, PERRLA, EOMI Neck: Supple Cardiovascular: Normal S1, Normal S2 Lungs: Clear to Auscultation Abdomen: Soft, No Tenderness Neurological: Normal Tone, Dysmetria in right hand possibly residual from last stroke., right arm 4/5 residual deficit from last stroke, Left upper and b/l lower 5/5 Extremities: No Edema Assessment/Plan Assessment: 57 YO M with PMH significant for diabetes mellitus, hyperlipidemia, hypertension , 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 We are following the patient with following problems. Acute delirium due to UTI: -Urine cultures are positive with gram-negative rods. Follow-up final cultures and sensitivities. -Continue ceftriaxone. Day 2 -Patient was encouraged to drink more oral fluids. -Renal USG is negative for renal/perirenal collection or renal stones. Left renal upper lobe calcification was noted. -His postvoiding residual urine is 17ml Unwitnessed fall: -Probably due to generalized weakness, probably mechanical fall -Patient denied any nausea vomiting or lightheadedness before the fall. -Fall precaution -PT recommended short-term rehabilitation as patient needs assistance. We will follow OT evaluation. -Yesterday patient walked around and sat for some time outside. He needs assistance to walk around. Acute kidney injury:(improved) -Patient has acute kidney injury probably due to dehydration. -Encourage patient to drink more water. -Today his creatinine level is 0.9 -Avoid nephrotoxic medications -Follow-up input and output Transaminitis: -Holding his statins -Follow-up LFTs History of hypertension: -Continue labetalol History of CVA: -Patient having residual deficit from last stoke. -Continue Plavix History of diabetes: -Accu-Cheks -Continue insulin NovoLog according to sliding scale -His fasting blood sugar level was 112 this morning -His blood sugar level is well controled with insulin NovoLog. DVT prophylaxis: Mechanical and subcutaneous Lovenox CODE STATUS: Full code Problem List: 1. Mental status change 2. Acute kidney injury 3. UTI (urinary tract infection) Pain Ratin Pain Location: none Pain Goal: Remain pain free Pain Plan: pain pathway Tomorrow's Labs & Rationales: bep
--- NOTE | 2017-11-06 10:21 | Discharge Summary ---
Visit Information Visit Dates Admission Date: 11/04/17 Discharge Date: 11/07/17 Hospital Course Course Attending Physician: Renée AMAYA,[facility] Primary Care Physician: Kizzy AMAYA,[place] Hospital Course: Patient is 57 Y M with PMH of CVA with right sided deficit (nonhemorrhagic left hemispheric stroke, 2 years ago no TPA, on Asptin and statin), DM (on insulin and metformin), HTN, history of alcohol dependence was BIBA to the ED with altered mental status/confusion status post unwitnessed fall. Pertinent vitals and labs at the time of admission Patient was afebrile,HR 80's, BP 109/61, sats 96% RA. Exam: awake, alert but oriented x1, dry mucosa, right sided deficit, some word finding difficulty and left CVA tenderness. Labs Normal WBC count, H&H low but stable, BUN 24, creat 1.5 (baseline 0.7-0.8), glucose 196, lactic acid 2.2, AST 78, ALT 77, trop negative. Alcohol <10. EKG showed normal sinus rhythm without any acute changes UA turbid, proteinuria, large LE, WBC packed, Bacteria packed, RBC 5-10, large hemoglobin. Urine tox screen negative. CXR didn't reveal any acute intracranial pathology. CT head: chronic left [employer] infarction, no acute pathology. Following problems were noted as per patient was on [employer] 1. Altered mental status/confusion status post unwitnessed fall(metabolic encephalopathy in the setting of urinary tract infection) Patient was admitted to general floor. He received IV fluids, treated with IV ceftriaxone for underlying urinary tract infection. Clinical condition and mental status improved during the hospitalization. Urine cultures were positive for Escherichia coli sensitive to ciprofloxacin. Patient was very weak and deconditioned, requiring a lot of assistance with ambulation. He was evaluated by physical therapy recommended short-term rehabilitation on discharge. Patient was discharged to [facility] on ciprofloxacin for a total of 10 days 2. Acute kidney injury(likely prerenal due to dehydration) Creatinine improved with IV hydration.Renal ultrasound ruled out any underlying obstructive uropathy/or focal renal/perirenal collection. 3. Transaminitis Statins were held and due to acute transaminitis,LFTs improved. Statins were resumed on discharge 4. History of CVA, hypertension and hyperlipidemia diabetes mellitus All other medications including Plavix, labetalol, insulin were continued DVT prophylaxis: Mechanical and subcutaneous Lovenox CODE STATUS: Full code Allergies: Coded Allergies: No Known Allergies (02/13/16) Significant Procedures: EXAM TYPE: US - US-RENAL/KIDNEY EXAMINATION: US RETROPERITONEAL COMPLETE (RENAL) CLINICAL INFORMATION: Fever, UTI. On antibiotics for 2 days. Presumptive diagnosis of renal or perirenal abscess/renal stone. COMPARISON: None TECHNIQUE: Real-time imaging of the kidneys and bladder. FINDINGS: RIGHT KIDNEY: 12.7 x 4.4 x 5.6 cm (SAG x AP x TRV). The kidney is normal in size, contour, and echogenicity. Renal cortical thickness is normal. There is a tiny 0.4 x 0.3 x 0.4 cm cortical cyst in the mid right kidney. No calculi or suspicious focal parenchymal lesions. No hydronephrosis. No perirenal collection. LEFT KIDNEY: 12.7 x 5.6 x 4.7 cm (SAG x AP x TRV). The kidney is normal in size, contour, and echogenicity. Renal cortical thickness is normal. No focal parenchymal lesions. A nonobstructing 0.5 x 0.3 x 0.4 cm calcification is seen in the upper pole of the left kidney. Slight fullness of the left renal pelvis is seen without hydronephrosis, likely due to an extrarenal pelvis. No perirenal collection. BLADDER: Only partially distended and suboptimally assessed, but grossly unremarkable. Bilateral ureteral jets are demonstrated. Prevoid bladder volume is 92 mL. Postvoid bladder volume is not assessed. IMPRESSION: 1. Nonobstructing upper pole left renal calcification. 2. No evidence of obstructive uropathy or focal renal/perirenal collection. 3. Tiny mid right renal cortical cyst. 4. Bladder underdistended but grossly unremarkable. DICTATED BY: Dominique Reilly MD DATE/TIME DICTATED:11/06/171250 PANMAN:CARLOS DATE/TIME TRANSCRIBED:11/06/171250 CONFIDENTIAL, DO NOT COPY WITHOUT APPROPRIATE AUTHORIZATION. <Electronically signed in Other Vendor System> SIGNED BY: Dominique Reilly MD [id number] Disposition Summary Disposition Principal Diagnosis: Altered mental status/confusion status post unwitnessed fall(metabolic encephalopathy in the setting of urinary tract infection) Additional Diagnosis: Acute kidney injury(likely prerenal due to dehydration) Discharge Disposition: SNF Discharge Instructions General Discharge Information Code Status: Full Code Patient's Diet: regular diet Patient's Activity: 1. Please follow-up with your primary care physician within 1-2 weeks after discharge 2. Please take the medications as directed Follow-Up Instructions/Appts: 1.Please follow up with your pcp in one week after the discharge. Medications at Discharge Discharge Medications: Continue taking these medications: Atorvastatin Calcium (Atorvastatin Calcium) 40 MG TABLET 1 Tablet ORAL 5 PM Qty = 30 Comments: Last Taken: 02/23/16 Time: 5:00 PM Labetalol HCl (Labetalol HCl) 200 MG TABLET 1 Tablet ORAL TWICE DAILY Qty = 30 Comments: LAST GIVEN 11/07/17929 Clopidogrel Bisulfate (Plavix) 75 MG TABLET 1 Tablet ORAL DAILY Comments: LAST GIVEN 11/07/17 @ 0930 Insulin Glargine,Hum.rec.anlog (Lantus Solostar) 100 UNIT/ML (3 ML) INSULN.PEN 15 Unit Inject into fatty tissue Every night Metformin HCl (Glucophage) 1,000 MG TABLET 1 Tablet ORAL TWICE DAILY Qty = 30 Sertraline HCl (Sertraline HCl) 25 MG TABLET 1 Tablet ORAL Every Morning Qty = 30 Sertraline HCl (Sertraline HCl) 50 MG TABLET 1 Tablet ORAL Every night Qty = 30 Comments: LAST GIVEN 11/07/17 @ 0930 Start taking the following new medications: Ciprofloxacin HCl (Cipro) 500 MG TABLET 1 Tablet ORAL TWICE DAILY Qty = 14 No Refills Comments: NOT GIVEN IN HOSPITAL Bisacodyl (Bisacodyl) 5 MG TABLET.DR 2 Tablet ORAL DAILY as needed for Constipation Qty = 15 No Refills Comments: LAST GIVEN 11/07/17 @ 0930 Copies To: Marcos Durand MD
--- NOTE | 2017-11-06 11:58 | PN- Att Addend ---
Attending Addendum Attending Brief Note Patient seen and examined. Plan of care discussed with the medical team and the patient. Available lab work and radiology test reports were reviewed. Patient sitting in chair. Appears slightly more alert today but remains disoriented. Has signficant difficulty in finding words. His by mouth intake has improved. Exam: General: Patient awake but confused and disoriented without any distress CVS: S1 plus S2 without any murmur or gallops Chest: Few scattered crepitation without any wheeze. There is no respiratory distress. Abdomen: Soft non-tender, bowel sound present, no guarding or rebound LEASING COORDINATOR: Awake confused and disoriented with persistent right-sided arm weakness and follows commands appropriately Extremities: No edema; no clubbing or cyanosis noted Assessment * Pyelonephritis/UTI due to Ecoli, sensitive to cefazolin * History of hemorrhagic CVA with residual right-sided weakness * Confusion delirium likely due to UTI * Unwitnessed fall * Acute kidney injury- improved, Cr now nl * Type 2 diabetes * Hist of hypertension Plan * Continue ceftriaxone for now * No need to check CBC * Continue current dose of Levemir * will plan to change abx to oral in am * PT eval Current Medications Sig/Brad Start time Last Medication Dose Route Stop Time Status Admin Acetaminophen 500 MG Q6P PRN 11/05 0130 AC 11/05 PO 2153 Bisacodyl 5 MG DAILY 11/06 0900 AC 11/06 PO 0820 Ceftriaxone Sodium 1,000 MG 2330 11/05 2330 AC 11/06 IV 0029 Clopidogrel Bisulfate 75 MG DAILY 11/05 0900 AC 11/06 PO 0820 Heparin Sodium 5,000 UNIT Q8 11/05 0600 AC 11/06 (Porcine) SC 0557 Insulin Aspart 0 TIDAC 11/05 0800 AC 11/06 SC 1147 Insulin Detemir 7 UNITS BID 11/05 0900 AC 11/06 SC 0824 Labetalol HCl 200 MG BID 11/05 0900 AC 11/06 PO 0820 Patient Medication 1 ED ONE ONE 11/05 1500 DC Teaching ED 11/05 1501 Polyethylene Glycol 17 GM DAILY 11/06 0900 AC 11/06 PO 0821 Sertraline HCl 75 MG DAILY 11/05 0900 AC 11/06 PO 0820 Laboratory Tests 11/06/17 0622: Anion Gap 12, Estimated GFR > 60, BUN/Creatinine Ratio 22.2 11/05/17 0715: Anion Gap 15, Estimated GFR 52 L, BUN/Creatinine Ratio 19.3, Lactic Acid 1.8, Total Bilirubin 0.7, Direct Bilirubin 0.2, AST 63 H, ALT 78 H, Alkaline Phosphatase 67, Total Protein 6.3, Albumin 3.7, CBC w Diff NO MAN DIFF REQ, RBC 3.34 L, MCV 89.8, MCH 30.5, MCHC 34.0, RDW 13.6, MPV 8.3, Gran % 82.6 H, Lymphocytes % 11.3 L, Monocytes % 5.7, Eosinophils % 0, Basophils % 0.4, Absolute Granulocytes 7.3 H, Absolute Lymphocytes 1.0 L, Absolute Monocytes 0.5, Absolute Eosinophils 0, Absolute Basophils 0 11/05/17 0255: Lactic Acid 2.4 H 11/04/172239: Urinalysis LIGHT H, Urine Color YEL, Urine Clarity TURBD H, Urine pH 6.0, Ur Specific [place] >= 1.030, Urine Protein 100 H, Urine Ketones NEG, Urine Nitrite NEG, Urine Bilirubin NEG, Urine Urobilinogen 1.0, Ur Leukocyte Esterase LARGE H, Ur Microscopic SEDIMENT EXAMINED, Urine RBC 5-10 H, Urine WBC PACKD H, Ur Epithelial Cells FEW, Urine Bacteria PACKD H, Urine Mucus FEW, Urine Hemoglobin LARGE H, Urine Glucose 100 H 11/04/172239: Urine Opiates Screen < 100, Methadone Screen < 40, Barbiturate Screen < 60, Ur Phencyclidine Scrn < 6.00, Amphetamines Screen 193, U Benzodiazepines Scrn 109, Urine Cocaine Screen < 50, Urine Cannabis Screen < 5.00, Ur Random Creatinine 160.5, Ur Random Sodium 38, Ur Random Potassium 35.2, Fraction Sodium Excret 0.3 11/04/172128: Serum Alcohol Cancelled 11/04/172123: Anion Gap 16, Estimated GFR 48 L, BUN/Creatinine Ratio 16.0, Glucose 196 H, Hemoglobin A1c 5.4, Lactic Acid 2.2 H, Calcium 9.0, Total Bilirubin 1.0, Direct Bilirubin 0.1, AST 78 H, ALT 77 H, Alkaline Phosphatase 70, Creatine Kinase 186 H, Troponin I < 0.01, Total Protein 6.7, Albumin 4.0, Amylase 38, Lipase 40 , CBC w Diff NO MAN DIFF REQ, RBC 3.72 L, MCV 90.2, MCH 30.1, MCHC 33.3, RDW 13.4, MPV 7.6, Gran % 86.3 H, Lymphocytes % 7.3 L, Monocytes % 6.1, Eosinophils % 0, Basophils % 0.3, Absolute Granulocytes 8.7 H, Absolute Lymphocytes 0.7 L, Absolute Monocytes 0.6, Absolute Eosinophils 0, Absolute Basophils 0, Serum Alcohol < 10.0 Microbiology 11/05 826 BLOOD: Blood Culture - RECD 11/05 07 BLOOD: Blood Culture - RECD 11/05 2239 URINE ROUT: Urine Culture - COMP ESCHERICHIA COLI Vital Signs Date Time Temp Pulse Resp B/P B/P Pulse O2 O2 Flow FiO2 Mean Ox Delivery Rate 11/06 0820 70 120/60 11/06 0624 99.0 70 20 120/60 95 Room Air 11/06 0000 99.5 11/05 2207 100.8 74 20 126/66 93 Room Air 11/05 2153 100.8 11/05 2151 74 126/66 11/05 1604 Room Air 11/05 1502 Room Air 11/05 1416 99.2 71 20 104/60 95 Room Air Intake & Output 11/06 1600 11/06 0800 11/06 0000 Intake Total 240 1090 Output Total 1125 1025 Balance -885 65 Intake, IV 0 10 Intake, Oral 240 1080 Number 0 Bowel Movements Output, Urine 1125 1025
--- NOTE | 2017-11-06 12:59 | ULTRASOUND REPORT ---
EXAMINATION: US RETROPERITONEAL COMPLETE (RENAL) CLINICAL INFORMATION: Fever, UTI. On antibiotics for 2 days. Presumptive diagnosis of renal or perirenal abscess/renal stone. COMPARISON: None TECHNIQUE: Real-time imaging of the kidneys and bladder. FINDINGS: RIGHT KIDNEY: 12.7 x 4.4 x 5.6 cm (SAG x AP x TRV). The kidney is normal in size, contour, and echogenicity. Renal cortical thickness is normal. There is a tiny 0.4 x 0.3 x 0.4 cm cortical cyst in the mid right kidney. No calculi or suspicious focal parenchymal lesions. No hydronephrosis. No perirenal collection. LEFT KIDNEY: 12.7 x 5.6 x 4.7 cm (SAG x AP x TRV). The kidney is normal in size, contour, and echogenicity. Renal cortical thickness is normal. No focal parenchymal lesions. A nonobstructing 0.5 x 0.3 x 0.4 cm calcification is seen in the upper pole of the left kidney. Slight fullness of the left renal pelvis is seen without hydronephrosis, likely due to an extrarenal pelvis. No perirenal collection. BLADDER: Only partially distended and suboptimally assessed, but grossly unremarkable. Bilateral ureteral jets are demonstrated. Prevoid bladder volume is 92 mL. Postvoid bladder volume is not assessed. IMPRESSION: 1. Nonobstructing upper pole left renal calcification. 2. No evidence of obstructive uropathy or focal renal/perirenal collection. 3. Tiny mid right renal cortical cyst. 4. Bladder underdistended but grossly unremarkable.
[2017-11-06 14:38] VITALS: BP 96/56
[2017-11-06] MEDS ORDERED: GLUCOPHAGE1000 M1 PO (16:32)
[2017-11-06 21:50] VITALS: BP 124/60
[2017-11-07 06:19] VITALS: BP 124/72
--- NOTE | 2017-11-07 07:09 | PN- Housestaff ---
Subjective Follow-up For: Acute delirium due to UTI Urine culture is positive for gram -ve rods NAVDEEP Transaminitis Subjective: No overnight events. Patient remained afebrile. Seen and examined this morning. He denied any chest pain, short of breath, nausea, vomiting, chills, fever, abdominal pain and dysuria. Patient having difficulty in finding words that's his baseline after his CVA and also memory problem. Patient is going to be discharged today to short-term rehabilitation. He will complete a total 10 days course of antibiotics for UTI. Review of Systems Constitutional: Denies: chills, fever. Cardiovascular: Denies: chest pain, palpitations. Respiratory: Denies: cough, short of breath, sputum production. Gastrointestinal: Denies: abdominal pain, constipation, diarrhea, nausea, vomiting. Genitourinary: Reports: no symptoms. Musculoskeletal: Denies: back pain. Neurological/Psychological: Reports: no symptoms. Objective Last 24 Hrs of Vital Signs/I&O Vital Signs Date Time Temp Pulse Resp B/P B/P Pulse O2 O2 Flow FiO2 Mean Ox Delivery Rate 11/07 0844 62 112/72 11/07 0619 98.3 72 20 124/72 95 Room Air 11/06 2150 99.0 73 22 124/60 93 Room Air 11/06 2135 64 024/60 11/06 1438 97.8 74 20 96/56 95 Room Air Intake & Output 11/07 1600 11/07 0800 11/07 0000 Intake Total Output Total 975 1400 Balance -975 -1400 Output, Urine 975 1400 Physical Exam General Appearance: Alert, Oriented X3, Cooperative Skin Temp/Moisture Exam: Warm/Dry Sepsis Skin Exam (color): Normal for Ethnicity HEENT: Atraumatic, PERRLA, EOMI Neck: Supple Cardiovascular: Normal S1, Normal S2 Lungs: Clear to Auscultation Abdomen: Soft, No Tenderness Neurological: Normal Tone, Decreased power 4/5 in right arm compare to left and dysmetria, slurring of speech is her baseline from last cva, lower extrimities 5 /5 Extremities: No Edema Assessment/Plan Assessment: 57 YO M with PMH significant for diabetes mellitus, hyperlipidemia, hypertension , 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 We are following the patient with following problems. Acute delirium due to UTI: -Urine cultures are positive with E-coli. Antibiotic sensitivities were followed. -Patient will be given ciprofloxacin 500mg twice a day for 7 more days to complete total 10 days course of antibiotics for UTI. -Patient was encouraged to drink more oral fluids -His postvoiding residual urine is 17ml -Yesterday his renal ultrasound was negative for any perirenal renal or renal collection and stone.. Unwitnessed fall: -Probably due to generalized weakness, probably mechanical fall -Patient denied any nausea vomiting or lightheadedness before the fall. -Fall precaution -PT recommended short-term rehabilitation as patient needs assistance. OT evaluation was also obtained and they recommended short-term rehabilitation considering patient's difficulty in walking and maintaining his balance. -Patient needs assistance for walking. Acute kidney injury:(improved) -Patient has acute kidney injury probably due to dehydration. -Encourage patient to drink more water. -Avoid nephrotoxic medications -Yesterday his creatinine level was 0.9 Transaminitis: -Holding his statins -Patient will follow his primary care physician for further workup. History of hypertension: -Continue labetalol -During hospital stay his blood pressure remained under control. History of CVA: -Patient having residual deficit from last stoke. -Continue Plavix History of diabetes: -Accu-Cheks -Continue insulin NovoLog according to sliding scale -His fasting blood sugar level was 105 this morning. During hospital stay his blood sugar levels remained under control. -His blood sugar level is well controled with insulin NovoLog. -We will resume his home medications after discharge including insulin Levemir and metformin. DVT prophylaxis: Mechanical and subcutaneous Lovenox CODE STATUS: Full code Problem List: 1. UTI (urinary tract infection) 2. Acute kidney injury Pain Ratin Pain Location: none Pain Goal: Remain pain free Pain Plan: pain pathway Tomorrow's Labs & Rationales: none
--- NOTE | 2017-11-07 07:34 | Patient Discharge Instructions ---
Discharge Instructions General Discharge Information You were seen/treated for: Acute delirium due to UTI Urine culture postive with E-coli NAVDEEP Transaminitis Watch for these problems: Altered mental status, dysuria, pus in urine, lower abdominal pain, hematuria, fever, chills and chest pain. If you experience any of these symptoms please come to ED or call to your pcp. Special Instructions: Follow up with your pcp in one week. Diet Recommended Diet: Diabetic Activity Activity Self Limited: Yes Acute Coronary Syndrome Inclusion Criteria At DC or during hospital stay patient has or had the following: ACS DIAGNOSIS No Discharge Core Measures Meds if any: Prescribed or Continued at Discharge Meds if any: NOT Prescribed or Continued at Discharge Congestive Heart Failure Inclusion Criteria At DC or during hospital stay patient has or had the following: CHF DIAGNOSIS No Discharge Core Measures Meds if any: Prescribed or Continued at Discharge Meds if any: NOT Prescribed or Continued at Discharge Cerebrovascular accident Inclusion Criteria At DC or during hospital stay patient has or had the following: CVA/TIA Diagnosis No Discharge Core Measures Meds if any: Prescribed or Continued at Discharge Meds if any: NOT Prescribed or Continued at Discharge Venous thromboembolism Inclusion Criteria VTE Diagnosis No VTE Type NONE VTE Confirmed by (Test) NONE Discharge Core Measures - Per Current guidelines, there needs to be overlap - treatment for the first 5 days of Warfarin therapy. - If discharged on Warfarin prior to 5 days of - overlap therapy, the patient will need to be - assessed for post discharge needs including - *Post discharge parental anticoagulation - *Warfarin and/or parental anticoagulation education - *Follow up date to check INR post discharge At least 5 days overlap therapy as Inpatient No Meds if any: Prescribed or Continued at Discharge Note: Overlap Therapy is Warfarin and Anticoagulant Meds if any: NOT Prescribed or Continued at Discharge
[2017-11-07] MEDS ORDERED: SERTRALINE HCL25 MG PO (07:36)
[2017-11-07] MEDS ORDERED: SERTRALINE HCL50 MG PO (07:37)
[2017-11-07] MEDS ORDERED: WOMEN'S LAXATIVE5 M1 PO (07:41)
[2017-11-07] MEDS ORDERED: BISACODYL5 M1 PO (07:43)
--- NOTE | 2017-11-07 08:25 | PN- Att Addend ---
Attending Addendum Attending Brief Note Patient seen and examined. Plan of care discussed with the medical team and the patient. Available lab work and radiology test reports were reviewed. Patient appears much more awake alert but still having difficulty recalling recent memory. He is able to eat by himself this morning. Denies any new complaints today. Exam: General: Patient awake but confused and disoriented without any distress CVS: S1 plus S2 without any murmur or gallops Chest: Few scattered crepitation without any wheeze. There is no respiratory distress. 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 with persistent right-sided arm weakness and follows commands appropriately Extremities: No edema; no clubbing or cyanosis noted Assessment * Pyelonephritis/UTI due to Ecoli, sensitive to Cipro * History of hemorrhagic CVA with residual right-sided weakness * Confusion delirium likely due to UTI * Unwitnessed fall * Acute kidney injury- improved, Cr now nl * Type 2 diabetes * Hist of hypertension Plan * Change ceftriaxone to oral Cipro for another 7 days * Plan for discharge today to str Current Medications Sig/Brad Start time Last Medication Dose Route Stop Time Status Admin Acetaminophen 500 MG Q6P PRN 11/05 0130 AC 11/05 PO 2153 Bisacodyl 5 MG DAILY 11/06 0900 AC 11/06 PO 0820 Ceftriaxone Sodium 1,000 MG 2330 11/05 2330 AC 11/06 IV 2318 Clopidogrel Bisulfate 75 MG DAILY 11/05 0900 AC 11/06 PO 0820 Heparin Sodium 5,000 UNIT Q8 11/05 0600 AC 11/07 (Porcine) SC 0620 Insulin Aspart 0 TIDAC 11/05 0800 AC 11/06 SC 1147 Insulin Detemir 7 UNITS BID 11/05 0900 AC 11/06 SC 2133 Labetalol HCl 200 MG BID 11/05 0900 AC 11/06 PO 2135 Polyethylene Glycol 17 GM DAILY 11/06 09 AC 11/06 PO 0821 Sertraline HCl 75 MG DAILY 11/05 0900 AC 11/06 PO 0820 Laboratory Tests 11/06/17 0622: Anion Gap 12, Estimated GFR > 60, BUN/Creatinine Ratio 22.2 11/05/17 0715: Anion Gap 15, Estimated GFR 52 L, BUN/Creatinine Ratio 19.3, Lactic Acid 1.8, Total Bilirubin 0.7, Direct Bilirubin 0.2, AST 63 H, ALT 78 H, Alkaline Phosphatase 67, Total Protein 6.3, Albumin 3.7, CBC w Diff NO MAN DIFF REQ, RBC 3.34 L, MCV 89.8, MCH 30.5, MCHC 34.0, RDW 13.6, MPV 8.3, Gran % 82.6 H, Lymphocytes % 11.3 L, Monocytes % 5.7, Eosinophils % 0, Basophils % 0.4, Absolute Granulocytes 7.3 H, Absolute Lymphocytes 1.0 L, Absolute Monocytes 0.5, Absolute Eosinophils 0, Absolute Basophils 0 11/05/17 0255: Lactic Acid 2.4 H 11/04/172239: Urinalysis LIGHT H, Urine Color YEL, Urine Clarity TURBD H, Urine pH 6.0, Ur Specific Raymond >= 1.030, Urine Protein 100 H, Urine Ketones NEG, Urine Nitrite NEG, Urine Bilirubin NEG, Urine Urobilinogen 1.0, Ur Leukocyte Esterase LARGE H, Ur Microscopic SEDIMENT EXAMINED, Urine RBC 5-10 H, Urine WBC PACKD H, Ur Epithelial Cells FEW, Urine Bacteria PACKD H, Urine Mucus FEW, Urine Hemoglobin LARGE H, Urine Glucose 100 H 11/04/172239: Urine Opiates Screen < 100, Methadone Screen < 40, Barbiturate Screen < 60, Ur Phencyclidine Scrn < 6.00, Amphetamines Screen 193, U Benzodiazepines Scrn 109, Urine Cocaine Screen < 50, Urine Cannabis Screen < 5.00, Ur Random Creatinine 160.5, Ur Random Sodium 38, Ur Random Potassium 35.2, Fraction Sodium Excret 0.3 11/04/172128: Serum Alcohol Cancelled 11/04/172123: Anion Gap 16, Estimated GFR 48 L, BUN/Creatinine Ratio 16.0, Glucose 196 H, Hemoglobin A1c 5.4, Lactic Acid 2.2 H, Calcium 9.0, Total Bilirubin 1.0, Direct Bilirubin 0.1, AST 78 H, ALT 77 H, Alkaline Phosphatase 70, Creatine Kinase 186 H, Troponin I < 0.01, Total Protein 6.7, Albumin 4.0, Amylase 38, Lipase 40 , CBC w Diff NO MAN DIFF REQ, RBC 3.72 L, MCV 90.2, MCH 30.1, MCHC 33.3, RDW 13.4, MPV 7.6, Gran % 86.3 H, Lymphocytes % 7.3 L, Monocytes % 6.1, Eosinophils % 0, Basophils % 0.3, Absolute Granulocytes 8.7 H, Absolute Lymphocytes 0.7 L, Absolute Monocytes 0.6, Absolute Eosinophils 0, Absolute Basophils 0, Serum Alcohol < 10.0 Microbiology 11/05 08 BLOOD: Blood Culture - RES 11/05 0715 BLOOD: Blood Culture - RES 11/04 2240 URINE ROUT: Urine Culture - COMP ESCHERICHIA COLI Vital Signs Date Time Temp Pulse Resp B/P B/P Pulse O2 O2 Flow FiO2 Mean Ox Delivery Rate 11/07 0619 98.3 72 20 124/72 95 Room Air 11/06 2150 99.0 73 22 124/60 93 Room Air 11/06 2135 64 024/60 11/06 1438 97.8 74 20 96/56 95 Room Air Intake & Output 11/07 1600 11/07 0800 11/07 0000 Intake Total Output Total 975 1400 Balance -975 -1400 Output, Urine 975 1400 Total time spent in preparation for discharge plan, patient education, and CMR preparation was 35 minutes.
[2017-11-07] MEDS ORDERED: CIPRO500 M1 PO ×2 (08:47→10:05)
[2017-11-07 10:27] VITALS: BP 112/72
== END 2017-11-07 11:45 | DRG 469 ==
LOC: ERH 20:52 → 2NB 23:24 → ERHI 23:24 → ENRESERV 11-05 00:20 → 2NB 11-05 00:50 → ENPENDDIS 11-07 10:11 → 2NB 11-07 11:45
PROVIDERS: Pediatrics; Student in an Organized Health Care Education/Training Program
DX: N17.9 Acute kidney failure, unspecified (principal); N39.0 Urinary tract infection, site not specified; I10 Essential (primary) hypertension; I69.351 Hemiplegia and hemiparesis following cerebral infarction affecting right dominant side; R74.0 Nonspecific elevation of levels of transaminase and lactic acid dehydrogenase [LDH]; E11.8 Type 2 diabetes mellitus with unspecified complications; Z79.84 Long term (current) use of oral hypoglycemic drugs; F05 Delirium due to known physiological condition; E86.0 Dehydration; W19.XXXA Unspecified fall, initial encounter; Z91.81 History of falling; E11.65 Type 2 diabetes mellitus with hyperglycemia; N10 Acute pyelonephritis; F17.210 Nicotine dependence, cigarettes, uncomplicated; I16.1 Hypertensive emergency; G93.41 Metabolic encephalopathy; B96.20 Unspecified Escherichia coli [E. coli] as the cause of diseases classified elsewhere
CPT/HCPCS: 2NBSP; 84133; 84300; ERO; 36415; 36592; 71045; 76775; 80307; 81001; 82436; 82570; 87040; 87086; 93005; 93010; 96374; 97110-GO; 97116-GO; 97161-GP; 97166-GO; 97530-GO; G0480; J0696; J1644